=== PATIENT | female | born 1945 | race Two or more races ===

== ENCOUNTER 2017-07-28 11:08 | Outpatient (CLI) | payer OTHER ==
[~2017-07-28 11:08] MED LIST: ATENOLOL50 MG PO; ECOTRIN81 MG PO; LIPITOR20 MG PO
== END 2017-07-28 11:30 | disposition home or self-care (01) ==
LOC: MAMO-SONO 11:08
DX: Z12.31 Encounter for screening mammogram for malignant neoplasm of breast (principal); Z87.898 Personal history of other specified conditions; N64.89 Other specified disorders of breast; R92.2 Inconclusive mammogram; Z68.24 Body mass index [BMI] 24.0-24.9, adult; E78.2 Mixed hyperlipidemia; I10 Essential (primary) hypertension

== ENCOUNTER 2017-08-09 12:37 | Outpatient (CLI) | payer OTHER | END 2017-08-09 13:00 | disposition home or self-care (01) | LOC: NUCLEAR 12:37 | DX: M81.0 Age-related osteoporosis without current pathological fracture (principal); M80.00XA Age-related osteoporosis with current pathological fracture, unspecified site, initial encounter for fracture; Z68.24 Body mass index [BMI] 24.0-24.9, adult; I10 Essential (primary) hypertension; E78.2 Mixed hyperlipidemia ==

== ENCOUNTER 2020-07-01 10:40 | Emergency (ER) | payer OTHER ==
[~2020-07-01] VITALS: Ht 157.5 cm; Wt 56.7 kg
[2020-07-01] MEDS ORDERED: TENORMIN50 M1 (11:17)
[2020-07-01] MEDS ORDERED: OMEPRAZOLE20 MG (11:17)
[2020-07-01] MEDS ORDERED: LIPITOR40 M1 (11:18)
[2020-07-01] MEDS ORDERED: HYDROCHLOROTH12.5 MG (11:18)
== END 2020-07-01 23:22 | disposition home or self-care (01) ==
LOC: ER 10:40
DX: K57.90 Diverticulosis of intestine, part unspecified, without perforation or abscess without bleeding (principal); K80.20 Calculus of gallbladder without cholecystitis without obstruction; K52.9 Noninfective gastroenteritis and colitis, unspecified; E86.0 Dehydration; R10.84 Generalized abdominal pain; Z03.818 Encounter for observation for suspected exposure to other biological agents ruled out

== ENCOUNTER 2020-09-03 09:41 | Outpatient (CLI) | payer OTHER ==
[~2020-09-03 09:41] MED LIST changes: +HYDROCHLOROTH12.5 MG; +LIPITOR40 M1; +OMEPRAZOLE20 MG; +TENORMIN50 M1
== END 2020-09-03 09:55 | disposition home or self-care (01) ==
LOC: MAMO-SONO 09:41
PROVIDERS: ATTEND Specialist
DX: Z12.31 Encounter for screening mammogram for malignant neoplasm of breast (principal); N64.59 Other signs and symptoms in breast; N60.02 Solitary cyst of left breast; E78.2 Mixed hyperlipidemia; I10 Essential (primary) hypertension; I70.0 Atherosclerosis of aorta; F39 Unspecified mood [affective] disorder; Z96.1 Presence of intraocular lens; Z68.24 Body mass index [BMI] 24.0-24.9, adult; N64.4 Mastodynia; D44.3 Neoplasm of uncertain behavior of pituitary gland

== ENCOUNTER 2020-09-16 09:56 | Outpatient (CLI) | payer OTHER | END 2020-09-16 10:00 | disposition home or self-care (01) | LOC: NUCLEAR 09:56 | PROVIDERS: ATTEND Specialist | DX: M81.0 Age-related osteoporosis without current pathological fracture (principal) ==

== ENCOUNTER 2021-11-03 08:33 | Outpatient (CLI) | payer OTHER | END 2021-11-03 08:48 | disposition home or self-care (01) | LOC: MAMO-SONO 08:33 | PROVIDERS: ATTEND Specialist | DX: R92.2 Inconclusive mammogram (principal); R92.8 Other abnormal and inconclusive findings on diagnostic imaging of breast; N64.4 Mastodynia ==

== ENCOUNTER 2023-06-09 10:51 | Outpatient (CLI) | payer OTHER | END 2023-06-09 10:55 | disposition home or self-care (01) | LOC: MAMO-SONO 10:51 | PROVIDERS: ATTEND Specialist | DX: N64.4 Mastodynia (principal); N64.51 Induration of breast; R92.8 Other abnormal and inconclusive findings on diagnostic imaging of breast; Z12.31 Encounter for screening mammogram for malignant neoplasm of breast ==

== ENCOUNTER 2023-06-09 11:50 | Outpatient (CLI) | payer OTHER | END 2023-06-09 11:52 | disposition home or self-care (01) | LOC: NUCLEAR 11:50 | PROVIDERS: ATTEND Specialist | DX: M81.0 Age-related osteoporosis without current pathological fracture (principal) ==